=== PATIENT | female | born 1970 | race Two or more races ===

== ENCOUNTER 2020-04-13 19:15 | Emergency (ER) | payer OTHER ==
[~2020-04-13] VITALS: Ht 165.1 cm; Wt 102.1 kg
[~2020-04-13 19:15] MED LIST: AUGMENTIN1 TAB.SR2 PO; DIOVAN HCT 320/1 TAB PO; GLIPIZIDE10 MG PO; METFORMIN HCL500 MG
[2020-04-13] MEDS ORDERED: JANUVIA100 MG (19:42)
[2020-04-13] MEDS ORDERED: IRBESARTAN-HCT1 EAC1 (19:42)
[2020-04-13] MEDS ORDERED: DILTIAZEM 24HR180 MG (19:42)
== END 2020-04-13 23:56 | disposition home or self-care (01) ==
LOC: ER 19:15
DX: M75.82 Other shoulder lesions, left shoulder (principal); E11.65 Type 2 diabetes mellitus with hyperglycemia; Z79.84 Long term (current) use of oral hypoglycemic drugs